=== PATIENT | male | born 1995 | race Hispanic/Latino ===

== ENCOUNTER 2019-03-21 08:35 | Emergency (ER) | payer SELFPAY ==
--- NOTE | 2019-03-21 09:04 | ER ---
Nurse's Notes [facility] Name: Sheng Colvin Age: 23 yrs Sex: Male : 1995 Arrival Date: 03/21/2019 Time: 08:36 Bed 23 Private MD: Diagnosis: Nausea Presentation: 03/21 08:49 Presenting complaint: Patient states: chest pain since 0500 this morning with nausea, em also reports being admitted to the hospital about 1.5 month ago for same thing, reports he was using cocaine, xanax and weed, symptoms were worse then they are today but feel similar, denies using drugs since last admission, also reports tingling, like ants crawling on left arm and leg. Transition of care: patient was not received from another setting of care. Onset of symptoms was March 21, 2019. Risk Assessment: Do you want to hurt yourself or someone else? Patient reports no desire to harm self or others. Initial Sepsis Screen: Does the patient meet any 2 criteria? No. Patient's initial sepsis screen is negative. Does the patient have a suspected source of infection? No. Patient's initial sepsis screen is negative. Care prior to arrival: None. 08:49 Method Of Arrival: Ambulatory em 08:56 Acuity: LUPE 3 ss Historical: - Allergies: 08:53 No Known Allergies; em - Home Meds: 08:53 None [Active]; em - PMHx: 08:53 Hypertension; em - PSHx: 08:53 None; em - Immunization history:: Adult Immunizations up to date. - Social history:: Smoking status: Patient/guardian denies using tobacco, Patient/guardian denies using street drugs, but used to use street drugs, Patient/guardian denies using alcohol, The patient lives with family. - Ebola Screening: : Patient negative for fever greater than or equal to 101.5 degrees Fahrenheit, and additional compatible Ebola Virus Disease symptoms Patient denies exposure to infectious person Patient denies travel to an Ebola-affected area in the 21 days before illness onset No symptoms or risks identified at this time. - Family history:: not pertinent. Screenin:48 Abuse screen: Denies threats or abuse. Nutritional screening: No deficits noted. em Tuberculosis screening: No symptoms or risk factors identified. Fall Risk None identified. Assessment: 08:52 General: Appears in no apparent distress. comfortable, Behavior is calm, cooperative. em Pain: Complains of pain in anterior aspect of left upper chest Pain does not radiate. Pain currently is 8 out of 10 on a pain scale. Pain began 4 hours ago. Is intermittent. Neuro: Level of Consciousness is awake, alert, obeys commands, Oriented to person, place, time, situation, Appropriate for age. Cardiovascular: Reports chest pain, nausea, Denies vomiting, Capillary refill < 3 seconds in bilateral fingers Patient's skin is warm and dry. Rhythm is sinus rhythm. Respiratory: Airway is patent Respiratory effort is even, unlabored, Respiratory pattern is regular, symmetrical. Derm: Skin is intact, is healthy with good turgor, Skin is pink, warm \T\ dry. Musculoskeletal: Capillary refill < 3 seconds, Range of motion: intact in all extremities. 09:00 General: The previous assessment is accurate, call light remains within reach. ss Vital Signs: 08:53 BP 137 / 75; Pulse 88; Resp 16; Temp 98.3(O); Pulse Ox 100% on R/A; Weight 137.89 kg; em Height 5 ft. 9 in. (175.26 cm); Pain 8/10; 08:53 Body Mass Index 44.89 (137.89 kg, 175.26 cm) em ED Course: 08:36 Patient arrived in ED. am2 08:39 Matt Jerez, RN is Primary Nurse. bp 08:43 Jw Lindo LVN is Primary Nurse. em 08:46 Kimberlyn Ramirez MD is Attending Physician. ma2 08:48 Patient has correct armband on for positive identification. Placed in gown. Bed in low em position. Call light in reach. Pulse ox on. NIBP on. 08:53 Arm band placed on. em 08:54 EKG done, by waste transportation technician. reviewed by Kimberlyn Ramirez MD. at1 08:56 Triage completed. ss 08:59 Inserted saline lock: 22 gauge in right antecubital area, using aseptic technique. kj1 09:19 No provider procedures requiring assistance completed. em 09:19 IV discontinued, intact, bleeding controlled, No redness/swelling at site. Pressure em dressing applied. Patient maintains SpO2 saturation greater than 95% on room air. Administered Medications: 09:07 Drug: Zofran 4 mg Route: IVP; Site: right antecubital; 09:18 Follow up: Response: No adverse reaction; Nausea is decreased em Outcome: 09:03 Discharge ordered by MD. bliss 09:19 Discharged to home ambulatory. em 09:19 Condition: good 09:19 Discharge instructions given to patient, Instructed on discharge instructions, follow up and referral plans. medication usage, Demonstrated understanding of instructions, follow-up care, medications, Prescriptions given X 1. 09:21 Patient left the ED. em Signatures: Jw Lindo, MACHINIST SET UP MACHINIST SET UP em Lia Covarrubias, ANTHONY CRUZ Arcelia Barroso, store operations associate EKG Tat1 Arcelia Álvarez am2 Matt Jerez RN RN bp Alzahri, Mohammad, MD MD ma2 Beckie Umana kj1
--- NOTE | 2019-03-21 09:04 | EDPHYS ---
Physician Documentation [facility] Name: Sheng Colvin Age: 23 yrs Sex: Male : 1995 Arrival Date: 03/21/2019 Time: 08:36 Bed 23 Private MD: ED Physician Kimberlyn Ramirez HPI: 03/21 09:01 This 23 yrs old Male presents to ER via Ambulatory with complaints of Chest ma2 Pain, Doesn't Feel Right, dry mouth, Headache. 09:04 This 23 yrs old Male presents to ER via Ambulatory with complaints of nausea. ma2 09:01 The patient or guardian reports chest pain that is located primarily in the substernal ma2 area. Associated signs and symptoms: Pertinent negatives: cough, lower extremity pain, nausea. Severity of pain: At its worst the pain was mild in the emergency department the pain is unchanged. The patient has not experienced similar symptoms in the past. 09:04 The patient or guardian reports chest pain that is located primarily in the. Associated ma2 signs and symptoms: Pertinent negatives: abdominal pain, no chest pain. Historical: - Allergies: 08:53 No Known Allergies; em - Home Meds: 08:53 None [Active]; em - PMHx: 08:53 Hypertension; em - PSHx: 08:53 None; em - Immunization history:: Adult Immunizations up to date. - Social history:: Smoking status: Patient/guardian denies using tobacco, Patient/guardian denies using street drugs, but used to use street drugs, Patient/guardian denies using alcohol, The patient lives with family. - Ebola Screening: : Patient negative for fever greater than or equal to 101.5 degrees Fahrenheit, and additional compatible Ebola Virus Disease symptoms Patient denies exposure to infectious person Patient denies travel to an Ebola-affected area in the 21 days before illness onset No symptoms or risks identified at this time. - Family history:: not pertinent. ROS: 09:01 Constitutional: Negative for fever, chills, and weight loss. ma2 09:01 All other systems are negative. Exam: 09:01 Constitutional: This is a well developed, well nourished patient who is awake, alert, ma2 and in no acute distress. Chest/axilla: Normal chest wall appearance and motion. Nontender with no deformity. No lesions are appreciated. Cardiovascular: Regular rate and rhythm with a normal S1 and S2. No gallops, murmurs, or rubs. Normal PMI, no JVD. No pulse deficits. Respiratory: Lungs have equal breath sounds bilaterally, clear to auscultation and percussion. No rales, rhonchi or wheezes noted. No increased work of breathing, no retractions or nasal flaring. Abdomen/GI: Soft, non-tender, with normal bowel sounds. No distension or tympany. No guarding or rebound. No evidence of tenderness throughout. MS/ Extremity: Pulses equal, no cyanosis. Neurovascular intact. Full, normal range of motion. Neuro: Awake and alert, GCS 15, oriented to person, place, time, and situation. Cranial nerves II-XII grossly intact. Motor strength 5/5 in all extremities. Sensory grossly intact. Cerebellar exam normal. Normal gait. Vital Signs: 08:53 BP 137 / 75; Pulse 88; Resp 16; Temp 98.3(O); Pulse Ox 100% on R/A; Weight 137.89 kg; em Height 5 ft. 9 in. (175.26 cm); Pain 8/10; 08:53 Body Mass Index 44.89 (137.89 kg, 175.26 cm) em MDM: 08:46 Patient medically screened. ma2 09:01 Differential diagnosis: anxiety, chest wall pain, gastroesophageal reflux disease ma2 (GERD). ASHLEY Risk Score: not applicable. Data reviewed: vital signs, nurses notes. Counseling: I had a detailed discussion with the patient and/or guardian regarding: the historical points, exam findings, and any diagnostic results supporting the discharge/admit diagnosis, the presence of at least one elevated blood pressure reading (>120/80) during this emergency department visit, the need for outpatient follow up. ED course: chest pain 1 week ago, resolved, no sympotms at this time, he will see his pcp tpday . 03/21 08:46 Order name: EKG - Nurse/Tech; Complete Time: 08:49 ma2 Administered Medications: 09:07 Drug: Zofran 4 mg Route: IVP; Site: right antecubital; ss 09:18 Follow up: Response: No adverse reaction; Nausea is decreased em Disposition: 03/21/19 09:03 Discharged to Home. Impression: Nausea. - Condition is Stable. - Discharge Instructions: Nausea, Adult. - Prescriptions for Zofran 4 mg Oral Tablet - take 1 tablet by ORAL route every 12 hours As needed; 20 tablet. - Medication Reconciliation Form, Thank You Letter, Antibiotic Education, Prescription Opioid Use form. - Follow up: Private Physician; When: Tomorrow; Reason: Continuance of care. Signatures: Jw Lindo LVN LVN em Lia Covarrubias RN RN ss Alzahri, Mohammad, MD MD ma2 Corrections: (The following items were deleted from the chart) 09: 09:03 03/21/2019 09:03 Discharged to Home. Impression: Nausea. Condition is Stable. em Forms are Medication Reconciliation Form, Thank You Letter, Antibiotic Education, Prescription Opioid Use. Follow up: Private Physician; When: Tomorrow; Reason: Continuance of care. ma2
[2019-03-21] MEDS ORDERED: ONDANSETRON 4 MG/2 ML VIAL ONE (09:07)
[2019-03-21 09:37] VITALS: BP 137/75; TEMP 98.3; O2SAT 100
--- NOTE | 2019-03-22 07:57 | EKG ---
Test Date: 2019-03-21 Test Time: 08:51:33 Locomotive Operator: PHANI MEASUREMENT RESULTS: Intervals: Rate: 85 MO: 140 QRSD: 102 QT: 382 QTc: 454 [place]: P: 15 MO: 140 QRS: 30 T: 13 INTERPRETIVE STATEMENTS: Normal sinus rhythm Normal ECG No previous ECG available for comparison Electronically Signed On 03-22-19 07:57:01 SUPPLY ANALYST by Jordan Huff
== END 2019-03-21 09:21 | disposition home or self-care (01) ==
LOC: EDSEX 08:35 → ER 08:35
DX: R11.0 Nausea (principal); I10 Essential (primary) hypertension
CPT/HCPCS: 93005; 96374; 99285; J2405